=== PATIENT | male | born 1970 | race Caucasian/White ===

== ENCOUNTER 2020-01-10 09:55 | Outpatient (RCR) | payer OTHER, SELFPAY | END 2020-04-09 23:59 | disposition home or self-care (01) | LOC: ANHDMC 09:55 | PROVIDERS: PCP Family Medicine; Visit Provider Family Medicine | DX: E11.65 Type 2 diabetes mellitus with hyperglycemia (principal); Z71.89 Other specified counseling | CPT/HCPCS: G0108 ==

== ENCOUNTER 2020-06-05 08:47 | Outpatient (NON) | payer OTHER, SELFPAY ==
[2020-06-06 14:04] LABS: SARS-CoV-2 RNA PCR Positive
== END 2020-06-05 08:48 ==
LOC: ANHCOVIDDT 08:51
PROVIDERS: Visit Provider Family Medicine
DX: U07.1 COVID-19 (principal)
CPT/HCPCS: 87635; C9803; U0003

== ENCOUNTER 2022-09-03 11:58 | Emergency (ER) | payer OTHER, SELFPAY ==
[2022-09-03 12:11] VITALS: BP 156/91; PULSE 88; RESP 16; TEMP 37.1; O2SAT 98
--- NOTE | 2022-09-03 12:17 | ED.WOUNDLAC ---
HPI - Wound/Laceration General Chief Complaint: Wound/Laceration Stated Complaint: Dog Bite Right Hand/ Left Forearm Time Seen by Provider: 09/03/22 12:17 Source: patient Mode of arrival: ambulatory Limitations: no limitations History of Present Illness HPI narrative: 52-year-old male presents with dog bite to bilateral hands. injury happened last night around 7:00 p.m.. He reports that he cleaned it wound himself. He is here today for a tetanus vaccine an antibiotic. The dog is his and the vaccines are up-to-date. All systems reviewed and negative except as noted above. Related Data Allergies Allergy/AdvReac Type Severity Reaction Status Date / Time dulaglutide Allergy Unknown Nausea And Verified 09/03/22 12:06 Vomiting Penicillins Allergy Unknown Unknown Verified 09/03/22 12:06 Review of Systems Review of Systems: CONSTITUTIONAL: Denies fever, chills, or sweats. EYES: Denies visual changes, redness, or discharge. ENT: Denies rhinorrhea, congestion, sore throat, or otalgia. CARDIOVASCULAR: Denies chest pain, palpitations, or edema. RESPIRATORY: Denies cough or dyspnea. GASTROINTESTINAL: Denies abdominal pain, nausea, vomiting, or diarrhea. GENITOURINARY: Denies dysuria or hematuria. SKIN: Denies rash or itching. Reports dog bite wounds to bilateral hands. MUSCULOSKELETAL: Denies back pain, joint pain, or myalgia. NEUROLOGIC: Denies headache, numbness, or weakness. PSYCHIATRIC: Denies anxiety or depression. All other systems reviewed are negative, except as documented in HPI. [facility] Past Medical History Medical History Benign reactive hypertension Extreme obesity Fatty liver Hyperlipidemia KEELEY on CPAP Uncontrolled diabetes mellitus Venous (peripheral) insufficiency Surgical History Surgical History H/O eye surgery Family History Family History Mother Breast cancer Father Throat cancer Sibling Patient's sister is in good health Patient's brother is in good health Social History Social History (Updated 06/06/22 @ 07:39 by Bertha Daniels) Social History: Smoking status: Never smoker Second hand tobacco smoke exposure: No Alcohol intake: never Substance use: never Substance use type: does not use Living arrangements: with family Occupation/Education: occupation Gender identity (if verbalized by the patient): Male Sexual Orientation (if Verbalized by the Patient): Lesbian, [place], or Homosexual Comments At time of signature, agree with nursing past medical, surgical, social and family history. There is no relevant family history pertinent to the presenting complaint. Exam Narrative: GENERAL: This is a well-nourished, well-developed patient, in no apparent distress. HEAD: normocephalic, atraumatic. EYES: PERRL. Sclera clear/white. Vision is grossly intact. EARS: External ears normal NOSE: External nose normal NECK: Neck supple, non-tender without lymphadenopathy, masses or thyromegaly. CARDIOVASCULAR: Regular rate and rhythm without murmurs, gallops, or rubs. RESPIRATORY: Clear to auscultation. Breath sounds equal bilaterally. No wheezes, rales, or rhonchi. SKIN: warm, Dry, with no suspicious lesions or rash, good texture and turgor. superficial punctures to bilateral hands. no active bleeding. injuries healing, scabbing noted. NEURO: awake, alert, and oriented to person, place and time. There were no obvious focal neurologic abnormalities. EXTREMITIES: No joint tenderness, effusion, or edema noted. Course Course Level of Care: Express Care Visit Vital Signs Vital signs: Vital Signs Temperature 37.1 C 09/03/22 12:11 Pulse Rate 88 09/03/22 12:11 Respiratory Rate 16 09/03/22 12:11 Blood Pressure 156/91 H 09/03/22 12:11 Pulse Oximetry 98 09/03/22 12:11 Oxygen Delivery Room Air
[2022-09-03] MEDS: TETANUS,DIPHTHERIA,AC PERTUSSIS ADULT (0.5 ML) BOOSTRIX IM (12:24)
== END 2022-09-03 12:38 | disposition home or self-care (01) ==
PROVIDERS: Emergency Provider Nurse Practitioner Family; PCP Family Medicine
DX: S61.432A Puncture wound without foreign body of left hand, initial encounter (principal); S61.431A Puncture wound without foreign body of right hand, initial encounter; W54.0XXA Bitten by dog, initial encounter; Z23 Encounter for immunization; I10 Essential (primary) hypertension; K76.0 Fatty (change of) liver, not elsewhere classified; E78.5 Hyperlipidemia, unspecified; G47.33 Obstructive sleep apnea (adult) (pediatric)
CPT/HCPCS: 90471; 90715; 99213; G0463